=== PATIENT | male | born 1950 | race Caucasian/White ===

== ENCOUNTER → 2021-02-22 | Outpatient (CLI) | payer MEDICARE, OTHER ==
[~2021-02-22] VITALS: Ht 185.4 cm; Wt 106.1 kg
[~2021-02-22] MED LIST: ADVAIR 250-501 EACH INH; AFRIN NASAL SPR30 ML; ALBUTEROL2.5 MG/3 M INH; ALDACTONE25 MG PO; ALLEGRA ALLERG180 MG PO; ASPIRIN CHEWABL81 MG PO; ATIVAN0.5 MG PO; BUMETANIDE1 MG PO; CARVEDILOL3.125 MG PO; CIPRO500 MG PO; COLACE 100MG C100 MG PO; COREG 25MG TAB25 MG PO; FERROUS SULFAT325 M2 PO; FLOMAX0.4 MG PO; FUROSEMIDE10 MG/1 M1 IVP; K-DUR TAB 10 M10 MEQ PO; KENALOG OINT 0.15 GM TOP; LASIX40 MG PO; LEVAQUIN500 MG PO; LEVOFLOXACIN250 MG PO; LIPITOR TAB 1010 MG PO; ONCE DAILY1 EACH PO; POLYTRIM EYE DR10 ML OP; PRINIVIL10 MG PO; PROTONIX 40 MG40 M1 PO; PROTONIX40 M1 PO; RANITIDINE HCL300 M1 PO; RANITIDINE HCL300 MG PO; SYNTHROID200 MCG PO; TESSALON PERLE100 MG PO; TOUJEO MAX300 UNIT/1 SQ; TRADJENTA5 MG PO; ULTRAM50 MG PO; VIBRAMYCIN100 MG PO; ZOLOFT50 MG PO
== END ==
LOC: OPSV 12:00
DX: N18.9 Chronic kidney disease, unspecified (principal)
CPT/HCPCS: 96365; J1439; J7030

== ENCOUNTER → 2021-06-26 | Outpatient (CLI) | payer MEDICARE, OTHER ==
[~2021-06-26] MED LIST changes: +BREO ELLIPTA 21 EACH INH; +CHLORTHALIDONE25 MG PO; +FAMOTIDINE20 MG PO; +FEXOFENADINE H180 MG PO; +FINASTERIDE5 MG PO; +HYDROCODON-ACE1 EAC4 PO; +LEVOFLOXACIN500 MG PO; +OMNICEF 300 MG300 MG PO
== END ==
LOC: HEART 5 12:56
DX: I50.22 Chronic systolic (congestive) heart failure (principal); I25.5 Ischemic cardiomyopathy; Z01.812 Encounter for preprocedural laboratory examination; Z20.822 Contact with and (suspected) exposure to COVID-19
CPT/HCPCS: 71046; 80048; 85025; 93306; U0003

== ENCOUNTER → 2021-06-28 | Outpatient (CLI) | payer MEDICARE, OTHER | LOC: CATH 07:24 | DX: Z45.02 Encounter for adjustment and management of automatic implantable cardiac defibrillator (principal); I25.5 Ischemic cardiomyopathy; I13.0 Hypertensive heart and chronic kidney disease with heart failure and stage 1 through stage 4 chronic kidney disease, or unspecified chronic kidney disease; E11.22 Type 2 diabetes mellitus with diabetic chronic kidney disease; N18.9 Chronic kidney disease, unspecified; I50.22 Chronic systolic (congestive) heart failure; I25.10 Atherosclerotic heart disease of native coronary artery without angina pectoris; I48.0 Paroxysmal atrial fibrillation; I25.2 Old myocardial infarction; I47.2 Ventricular tachycardia; E03.9 Hypothyroidism, unspecified; Z95.1 Presence of aortocoronary bypass graft; Z87.891 Personal history of nicotine dependence; Z88.0 Allergy status to penicillin; Z88.1 Allergy status to other antibiotic agents; Z79.4 Long term (current) use of insulin; Z79.899 Other long term (current) drug therapy | CPT/HCPCS: 93641; 99152; 99153; C1882; J1200; J2250; J3010; J3370; J7040; J7050 ==

== ENCOUNTER 2021-07-08 14:34 | Emergency (ER) | payer MEDICARE, OTHER ==
[~2021-07-08 14:34] MED LIST changes: -OMNICEF 300 MG300 MG PO
[2021-07-08 16:04] LABS: HEMOGLOBIN 9.6 gm/dl (14.0-17.5); RED BLOOD COUNT 3.38 M/UL (4.20-5.50); WHITE BLOOD COUNT 7.4 K/UL (4.5-11.0)
[2021-07-08] MEDS ORDERED: OMNICEF 300 MG300 MG PO (20:58)
== END 2021-07-08 22:00 | disposition home or self-care (01) ==
LOC: ER1 14:34 → CDU 20:06 → ER1 20:06
PROVIDERS: Emergency Medicine
DX: N17.9 Acute kidney failure, unspecified (principal); E87.6 Hypokalemia; I13.0 Hypertensive heart and chronic kidney disease with heart failure and stage 1 through stage 4 chronic kidney disease, or unspecified chronic kidney disease; I50.9 Heart failure, unspecified; Z20.822 Contact with and (suspected) exposure to COVID-19; N39.0 Urinary tract infection, site not specified; N18.9 Chronic kidney disease, unspecified; J44.9 Chronic obstructive pulmonary disease, unspecified; E11.22 Type 2 diabetes mellitus with diabetic chronic kidney disease; Z88.0 Allergy status to penicillin; Z88.2 Allergy status to sulfonamides; Z88.8 Allergy status to other drugs, medicaments and biological substances
CPT/HCPCS: 71045; 80053; 81001; 82550; 82553; 83690; 83735; 83874; 84100; 84439; 84443; 84484; 85025; 85610; 85730; 93005; 96374; 99285; J0696; U0002

== ENCOUNTER → 2021-07-24 | Outpatient (CLI) | payer MEDICARE, OTHER ==
[~2021-07-24] VITALS: Ht 185.4 cm; Wt 104.3 kg
[~2021-07-24] MED LIST changes: +OMNICEF 300 MG300 MG PO
== END ==
LOC: OPSV 07-13 13:00
DX: D50.9 Iron deficiency anemia, unspecified (principal)
CPT/HCPCS: 96365; J1439

== ENCOUNTER 2021-09-12 02:53 | Inpatient (IN) | payer MEDICARE, OTHER ==
[~2021-09-12] VITALS: Ht 182.9 cm; Wt 104.3 kg
[~2021-09-12 02:53] MED LIST changes: -FINASTERIDE5 MG PO; -LIPITOR TAB 1010 MG PO; -SYNTHROID200 MCG PO; +ZOLOFT100 MG PO; -ZOLOFT50 MG PO
[2021-09-12 03:18] LABS: HEMOGLOBIN 10.9 gm/dl (14.0-17.5); RED BLOOD COUNT 3.51 M/UL (4.20-5.50); WHITE BLOOD COUNT 5.7 K/UL (4.5-11.0)
[2021-09-12] MEDS ORDERED: TOUJEO MAX300 UNIT/1 SQ (08:30)
[2021-09-12] MEDS ORDERED: CARVEDILOL6.25 MG PO (10:19)
[2021-09-12] MEDS ORDERED: FERROUS SULFAT325 MG PO (10:20)
[2021-09-12] MEDS ORDERED: FAMOTIDINE20 MG PO (10:25)
[2021-09-12] MEDS ORDERED: FIASP PENF100 UNIT/1 SQ (10:29)
[2021-09-12] MEDS ORDERED: GLUCAGON EMERGEN1 MG SQ (10:31)
[2021-09-12] MEDS ORDERED: MULTIVITAMIN1 EACH PO (10:34)
[2021-09-13 03:59] LABS: HEMOGLOBIN 10.7 gm/dl (14.0-17.5); RED BLOOD COUNT 3.46 M/UL (4.20-5.50); WHITE BLOOD COUNT 7.7 K/UL (4.5-11.0)
[2021-09-14 02:43] LABS: ADENOVIRUS F 40/41 Not Detected (Negative); ASTROVIRUS Not Detected (Negative); CAMPYLOBACTER Not Detected (Negative); CRYPTOSPORIDIUM Not Detected (Negative); E.COLI 0157 Not Detected (Negative); ENTAMOEBA HISTOLYTICA Not Detected (Negative); ENTEROAGGREGATIVE E.COLI (EAEC Not Detected (Negative); ENTEROPATHOGENIC E.COLI (EPEC) Not Detected (Negative); ENTEROTOXIGENIC E.COLI (ETEC) Not Detected (Negative); GIARDIA LAMBLIA Not Detected (Negative); NOROVIRUS GI/GII Not Detected (Negative); PLESIOMONAS SHIGELLOIDES Not Detected (Negative); ROTOVIRUS A Not Detected (Negative); SALMONELLA Not Detected (Negative); SAPOVIRUS Not Detected (Negative); SHIG/ENTEROINVAS.ECOLI (EIEC) Not Detected (Negative); SHIGA-LIK TOX.PRO.E.COLI (STEC Not Detected (Negative); VIBRIO Not Detected (Negative); VIBRIO CHOLERAE Not Detected (Negative); YERSINIA ENTEROCOLITICA Not Detected (Negative)
[2021-09-14 04:50] LABS: RED BLOOD COUNT 3.27 M/UL (4.20-5.50); WHITE BLOOD COUNT 6.2 K/UL (4.5-11.0)
[2021-09-14 08:11] LABS: CLOSTRIDIUM DIFFICILE TOX A/B DETECTED (Negative)
[2021-09-15 08:42] LABS: RED BLOOD COUNT 3.32 M/UL (4.20-5.50)
[2021-09-16] MEDS ORDERED: ASPIRIN EC81 MG PO (17:43)
[2021-09-16] MEDS ORDERED: BUMETANIDE1 MG PO (17:43)
[2021-09-16] MEDS ORDERED: VANCOMYCIN HCL125 MG PO ×2 (17:43→18:22)
[2021-09-16] MEDS ORDERED: SPIRIVA HANDIH18 MCG INH (18:34)
[2021-09-16] MEDS ORDERED: IPRAT-ALBUT 0.5-3 ML NEB (18:34)
[2021-09-17 07:58] LABS: HEMOGLOBIN 9.7 gm/dl (14.0-17.5); RED BLOOD COUNT 3.25 M/UL (4.20-5.50); WHITE BLOOD COUNT 5.7 K/UL (4.5-11.0)
[2021-09-17] MEDS ORDERED: K-TAB ER20 MEQ PO (14:21)
[2021-09-17] MEDS ORDERED: DOXYCYCLINE HY100 M2 PO (14:21)
[2021-09-17] MEDS ORDERED: OMNICEF 300 MG300 MG PO (14:21)
[2021-09-24] MEDS ORDERED: SYNTHROID200 MCG PO (02:21)
[2021-09-24] MEDS ORDERED: LIPITOR TAB 1010 MG PO (02:23)
[2021-09-24] MEDS ORDERED: FINASTERIDE5 MG PO (08:26)
[2021-09-24] MEDS ORDERED: ALDACTONE25 MG PO (08:28)
== END 2021-09-17 22:36 | disposition home health service (06) | DRG 291 ==
LOC: ER1 02:53 → CDU 05:56 → M/S 15:43
PROVIDERS: Emergency Medicine; Internal Medicine; Internal Medicine Nephrology; ADMIT Internal Medicine
DX: I13.0 Hypertensive heart and chronic kidney disease with heart failure and stage 1 through stage 4 chronic kidney disease, or unspecified chronic kidney disease (principal); I50.23 Acute on chronic systolic (congestive) heart failure; R53.2 Functional quadriplegia; J96.01 Acute respiratory failure with hypoxia; T83.511A Infection and inflammatory reaction due to indwelling urethral catheter, initial encounter; J98.11 Atelectasis; N30.00 Acute cystitis without hematuria; A04.72 Enterocolitis due to Clostridium difficile, not specified as recurrent; Z20.822 Contact with and (suspected) exposure to COVID-19; Z66 Do not resuscitate; E83.39 Other disorders of phosphorus metabolism; I25.5 Ischemic cardiomyopathy; I48.91 Unspecified atrial fibrillation; E87.6 Hypokalemia; J20.9 Acute bronchitis, unspecified; E66.9 Obesity, unspecified; Z68.30 Body mass index [BMI] 30.0-30.9, adult; N18.30 Chronic kidney disease, stage 3 unspecified; D63.1 Anemia in chronic kidney disease; E03.9 Hypothyroidism, unspecified; E11.22 Type 2 diabetes mellitus with diabetic chronic kidney disease; I87.8 Other specified disorders of veins; D69.6 Thrombocytopenia, unspecified; I08.1 Rheumatic disorders of both mitral and tricuspid valves; N40.1 Benign prostatic hyperplasia with lower urinary tract symptoms; R33.8 Other retention of urine; Y83.8 Other surgical procedures as the cause of abnormal reaction of the patient, or of later complication, without mention of misadventure at the time of the procedure; I27.20 Pulmonary hypertension, unspecified; J44.9 Chronic obstructive pulmonary disease, unspecified; I48.0 Paroxysmal atrial fibrillation; Z88.0 Allergy status to penicillin; Z88.2 Allergy status to sulfonamides; Z98.49 Cataract extraction status, unspecified eye; Z95.1 Presence of aortocoronary bypass graft; Z95.810 Presence of automatic (implantable) cardiac defibrillator; Z87.891 Personal history of nicotine dependence; Z88.1 Allergy status to other antibiotic agents; Z82.49 Family history of ischemic heart disease and other diseases of the circulatory system; Z83.3 Family history of diabetes mellitus; Z79.4 Long term (current) use of insulin; Y92.89 Other specified places as the place of occurrence of the external cause
CPT/HCPCS: 0240U; 36415; 36600; 51702; 71045; 71250; 80053; 81001; 82140; 82550; 82553; 82607; 82746; 82803; 82962; 83036; 83605; 83735; 83874; 83880; 84100; 84132; 84439; 84443; 84484; 84550; 85025; 85027; 85610; 85730; 87040; 87086; 87324; 87449; 87507; 93005; 94640; 94664; 94760; 96374; 96375; 97162; 97166; 97530-GP-CQ; 99285; A6212; J0696; J1250; J1644; J1650; J1940; J2930; P9047

== ENCOUNTER 2021-09-24 08:34 | Inpatient (IN) | payer MEDICARE, OTHER ==
[~2021-09-24] VITALS: Ht 185.4 cm; Wt 123.0 kg
[~2021-09-24 08:34] MED LIST changes: +ASPIRIN EC81 MG PO; +CARVEDILOL6.25 MG PO; +DOXYCYCLINE HY100 M2 PO; +FERROUS SULFAT325 MG PO; +FIASP PENF100 UNIT/1 SQ; +FINASTERIDE5 MG PO; +GLUCAGON EMERGEN1 MG SQ; +IPRAT-ALBUT 0.5-3 ML NEB; +K-TAB ER20 MEQ PO; +LIPITOR TAB 1010 MG PO; +MULTIVITAMIN1 EACH PO; +SPIRIVA HANDIH18 MCG INH; +SYNTHROID200 MCG PO; +VANCOMYCIN HCL125 MG PO
[2021-09-24 09:28] LABS: BUN/CREATININE RATIO 20 (0-10)
[2021-09-24 09:31] LABS: HEMOGLOBIN 10.3 gm/dl (14.0-17.5); RED BLOOD COUNT 3.4 M/UL (4.20-5.50); WHITE BLOOD COUNT 8.7 K/UL (4.5-11.0)
[2021-09-24] MEDS ORDERED: BUMETANIDE1 MG PO (15:47)
[2021-09-24] MEDS ORDERED: FLOMAX0.4 MG PO (19:20)
[2021-09-25 06:20] LABS: HEMOGLOBIN 9.7 gm/dl (14.0-17.5); RED BLOOD COUNT 3.19 M/UL (4.20-5.50); WHITE BLOOD COUNT 9.6 K/UL (4.5-11.0)
[2021-09-26 11:00] LABS: HEMOGLOBIN 9.7 gm/dl (14.0-17.5); RED BLOOD COUNT 3.16 M/UL (4.20-5.50); WHITE BLOOD COUNT 8.3 K/UL (4.5-11.0)
--- NOTE | 2021-09-27 03:05 | NUR ---
SCUDS PLACED ON PATIENT PER ORDERS.
[2021-09-27 05:56] LABS: HEMOGLOBIN 9.5 gm/dl (14.0-17.5); RED BLOOD COUNT 3.11 M/UL (4.20-5.50); WHITE BLOOD COUNT 6.4 K/UL (4.5-11.0)
[2021-09-28 05:00] LABS: HEMOGLOBIN 9.4 gm/dl (14.0-17.5); RED BLOOD COUNT 3.13 M/UL (4.20-5.50); WHITE BLOOD COUNT 6.9 K/UL (4.5-11.0)
[2021-09-28 17:54] LABS: ADENOVIRUS F 40/41 Not Detected (Negative); ASTROVIRUS Not Detected (Negative); CAMPYLOBACTER Not Detected (Negative); CRYPTOSPORIDIUM Not Detected (Negative); E.COLI 0157 Not Detected (Negative); ENTAMOEBA HISTOLYTICA Not Detected (Negative); ENTEROAGGREGATIVE E.COLI (EAEC Not Detected (Negative); ENTEROPATHOGENIC E.COLI (EPEC) Not Detected (Negative); ENTEROTOXIGENIC E.COLI (ETEC) Not Detected (Negative); GIARDIA LAMBLIA Not Detected (Negative); NOROVIRUS GI/GII Not Detected (Negative); PLESIOMONAS SHIGELLOIDES Not Detected (Negative); ROTOVIRUS A Not Detected (Negative); SALMONELLA Not Detected (Negative); SAPOVIRUS Not Detected (Negative); SHIG/ENTEROINVAS.ECOLI (EIEC) Not Detected (Negative); SHIGA-LIK TOX.PRO.E.COLI (STEC Not Detected (Negative); VIBRIO Not Detected (Negative); VIBRIO CHOLERAE Not Detected (Negative); YERSINIA ENTEROCOLITICA Not Detected (Negative)
[2021-09-29 03:24] LABS: HEMOGLOBIN 9.6 gm/dl (14.0-17.5); RED BLOOD COUNT 3.16 M/UL (4.20-5.50); WHITE BLOOD COUNT 6.3 K/UL (4.5-11.0)
[2021-09-29 10:47] LABS: CLOSTRIDIUM DIFFICILE TOX A/B DETECTED (Negative)
--- NOTE | 2021-09-29 10:48 | NUR ---
SPOKE WITH DR ROMAN RE: PT'S LAB--POSITIVE FOR C-DIFF, NO NEW ORDERS AT THIS TIME.
[2021-09-30 02:45] LABS: HEMOGLOBIN 9.7 gm/dl (14.0-17.5); RED BLOOD COUNT 3.15 M/UL (4.20-5.50); WHITE BLOOD COUNT 6.6 K/UL (4.5-11.0)
[2021-10-01 03:03] LABS: HEMOGLOBIN 9.7 gm/dl (14.0-17.5); RED BLOOD COUNT 3.19 M/UL (4.20-5.50)
[2021-10-02] MEDS ORDERED: FAMOTIDINE20 MG PO (12:45)
--- NOTE | 2021-10-02 15:12 | NUR ---
PATIENT DISCHARGED HOME. REPORT TO [facility] REPORT GIVEN TO PRINCESS. CALLED [facility] FOR TRANSPORT CALLED TO PRINCESS, INFORMATION FAXED
--- NOTE | 2021-10-02 15:44 | NUR ---
[facility] ARRIVES. [facility]. CHAPARRO
== END 2021-10-02 15:41 | disposition home health service (06) | DRG 291 ==
LOC: ER1 08:34 → CDU 09:58 → MED SURG 4 09:58 → PROG CARE 09:58 → MED SURG 4 17:14 → PROG CARE 09-27 00:09
PROVIDERS: Emergency Medicine; Internal Medicine; Internal Medicine Nephrology; Physician Assistant; ADMIT Internal Medicine
DX: I13.0 Hypertensive heart and chronic kidney disease with heart failure and stage 1 through stage 4 chronic kidney disease, or unspecified chronic kidney disease (principal); I50.23 Acute on chronic systolic (congestive) heart failure; N17.9 Acute kidney failure, unspecified; J44.1 Chronic obstructive pulmonary disease with (acute) exacerbation; J96.11 Chronic respiratory failure with hypoxia; E87.2 Acidosis; A04.71 Enterocolitis due to Clostridium difficile, recurrent; Z20.822 Contact with and (suspected) exposure to COVID-19; I87.2 Venous insufficiency (chronic) (peripheral); I48.0 Paroxysmal atrial fibrillation; E03.9 Hypothyroidism, unspecified; I25.5 Ischemic cardiomyopathy; D63.1 Anemia in chronic kidney disease; I25.10 Atherosclerotic heart disease of native coronary artery without angina pectoris; N40.0 Benign prostatic hyperplasia without lower urinary tract symptoms; R53.81 Other malaise; D64.9 Anemia, unspecified; E11.22 Type 2 diabetes mellitus with diabetic chronic kidney disease; N18.30 Chronic kidney disease, stage 3 unspecified; I27.20 Pulmonary hypertension, unspecified; Z95.5 Presence of coronary angioplasty implant and graft; Z95.810 Presence of automatic (implantable) cardiac defibrillator; Z98.49 Cataract extraction status, unspecified eye; Z88.0 Allergy status to penicillin; Z79.82 Long term (current) use of aspirin; Z79.899 Other long term (current) drug therapy; Z79.01 Long term (current) use of anticoagulants; Z98.890 Other specified postprocedural states; Z82.49 Family history of ischemic heart disease and other diseases of the circulatory system; Z79.4 Long term (current) use of insulin
CPT/HCPCS: 36415; 36600; 51702; 71045; 80048; 80053; 80069; 81001; 82550; 82553; 82728; 82803; 82962; 83540; 83550; 83605; 83735; 83874; 83880; 84484; 85025; 85027; 85610; 85730; 87040; 87449; 87507; 93005; 94640; 94664; 94760; 96374; 96375; 97110; 97110-GP-CQ; 97162; 97164; 97166; 97530; 97530-GP-CQ; 99285; J0692; J1205; J1250; J1650; J1940; J2405; J2930; P9047; U0002

== ENCOUNTER 2021-10-04 14:32 | Inpatient (IN) | payer MEDICARE, OTHER ==
[~2021-10-04] VITALS: Ht 185.4 cm; Wt 117.7 kg
[2021-10-04 16:55] LABS: HEMOGLOBIN 10.3 gm/dl (14.0-17.5); RED BLOOD COUNT 3.34 M/UL (4.20-5.50); WHITE BLOOD COUNT 8.4 K/UL (4.5-11.0)
[2021-10-04] MEDS ORDERED: LEVOTHYROXINE25 MCG PO (22:16)
[2021-10-05] MEDS ORDERED: ACID CONTROLLER20 MG PO (00:06)
[2021-10-05] MEDS ORDERED: CIPRO250 MG PO (00:08)
[2021-10-05] MEDS ORDERED: CHLORTHALIDONE25 MG PO (00:08)
[2021-10-05] MEDS ORDERED: FIASP PENF100 UNIT/1 SQ (00:11)
[2021-10-05 04:06] LABS: HEMOGLOBIN 9.2 gm/dl (14.0-17.5); RED BLOOD COUNT 3.04 M/UL (4.20-5.50); WHITE BLOOD COUNT 8.1 K/UL (4.5-11.0)
[2021-10-05 04:47] LABS: BUN/CREATININE RATIO 26 (0-10)
[2021-10-07 03:33] LABS: HEMOGLOBIN 8.7 gm/dl (14.0-17.5); RED BLOOD COUNT 2.89 M/UL (4.20-5.50)
--- NOTE | 2021-10-07 04:10 | NUR ---
PTS CALLED OUT AND STATES, " HE IS ITCHING ALL OVER." ASSESSED PT AND BILATERAL ARMS RED AND ITCHY BUT HAVE BEEN THAT WAY FOR DAYS. NOTIFIED DR. ANNE OF PTS COMPLAINTS.
[2021-10-08 04:58] LABS: HEMOGLOBIN 8.9 gm/dl (14.0-17.5); RED BLOOD COUNT 2.98 M/UL (4.20-5.50); WHITE BLOOD COUNT 8.7 K/UL (4.5-11.0)
[2021-10-08 19:35] LABS: URINE CREATININE 71.1 mg/dL
[2021-10-09 03:42] LABS: HEMOGLOBIN 9.2 gm/dl (14.0-17.5); WHITE BLOOD COUNT 8.7 K/UL (4.5-11.0)
[2021-10-09] MEDS ORDERED: MAGIC BUTT CREAM TOP (17:45)
[2021-10-09] MEDS ORDERED: LEVOTHYROXINE25 MCG PO (17:45)
[2021-10-09] MEDS ORDERED: HYDROCORTISONE 1% TOP (17:45)
[2021-10-09] MEDS ORDERED: BENADRYL 1% CRE15 GM TOP (17:45)
[2021-10-09] MEDS ORDERED: BENADRYL25 MG PO (17:46)
== END 2021-10-09 20:45 | DRG 682 ==
LOC: ER1 14:32 → CDU 21:02 → PROG CARE 21:02
PROVIDERS: Internal Medicine; Internal Medicine Nephrology; Physician Assistant Medical; ADMIT Internal Medicine
DX: N17.0 Acute kidney failure with tubular necrosis (principal); I50.23 Acute on chronic systolic (congestive) heart failure; R53.2 Functional quadriplegia; J96.21 Acute and chronic respiratory failure with hypoxia; I13.0 Hypertensive heart and chronic kidney disease with heart failure and stage 1 through stage 4 chronic kidney disease, or unspecified chronic kidney disease; K92.2 Gastrointestinal hemorrhage, unspecified; F05 Delirium due to known physiological condition; Z20.822 Contact with and (suspected) exposure to COVID-19; Z66 Do not resuscitate; Z51.5 Encounter for palliative care; L89.302 Pressure ulcer of unspecified buttock, stage 2; N18.30 Chronic kidney disease, stage 3 unspecified; E11.22 Type 2 diabetes mellitus with diabetic chronic kidney disease; E11.40 Type 2 diabetes mellitus with diabetic neuropathy, unspecified; I25.5 Ischemic cardiomyopathy; N40.1 Benign prostatic hyperplasia with lower urinary tract symptoms; E66.9 Obesity, unspecified; I25.10 Atherosclerotic heart disease of native coronary artery without angina pectoris; D63.1 Anemia in chronic kidney disease; D69.6 Thrombocytopenia, unspecified; E03.9 Hypothyroidism, unspecified; I48.0 Paroxysmal atrial fibrillation; Z79.4 Long term (current) use of insulin; Z98.890 Other specified postprocedural states; Z95.2 Presence of prosthetic heart valve; Z95.810 Presence of automatic (implantable) cardiac defibrillator; Z68.30 Body mass index [BMI] 30.0-30.9, adult; Z98.49 Cataract extraction status, unspecified eye; Z95.1 Presence of aortocoronary bypass graft; Z82.49 Family history of ischemic heart disease and other diseases of the circulatory system; Z88.0 Allergy status to penicillin; Z88.2 Allergy status to sulfonamides; Z88.1 Allergy status to other antibiotic agents; Z87.891 Personal history of nicotine dependence; Z79.82 Long term (current) use of aspirin; Z79.84 Long term (current) use of oral hypoglycemic drugs
CPT/HCPCS: 36415; 36600; 51702; 71045; 80048; 80053; 80069; 81001; 82550; 82553; 82565; 82570; 82575; 82728; 82803; 82962; 83540; 83550; 83605; 83735; 83874; 83880; 84100; 84439; 84443; 84484; 85025; 85027; 85610; 85652; 86140; 87077; 87086; 87186; 94640; 94664; 94760; 96374; 97110-GP-CQ; 97162; 97530-GP-CQ; 99285; J0696; J1205; J1250; J1650; J1756; J1940; P9047; U0002